=== PATIENT | female | born 1950 | race Caucasian/White ===

== ENCOUNTER 2016-08-16 14:41 | Emergency (ER) | payer OTHER, BC ==
[~2016-08-16] VITALS: Ht 160 cm; Wt 81.8 kg
[2016-08-16 14:53] VITALS: BP 140/72; PULSE 103; RESP 14; TEMP 97.8; O2SAT 99
[2016-08-16] MEDS ORDERED: LISI10TA3 PO (16:00)
[2016-08-16] MEDS ORDERED: OMEP20TA PO (16:00)
[2016-08-16] MEDS ORDERED: LOVA20TA PO (16:00)
[2016-08-16] MEDS ORDERED: VENL75TA PO (16:00)
[2016-08-16] MEDS ORDERED: ROBA500T PO (17:22)
[2016-08-16] MEDS ORDERED: IBUP800T23 PO (17:22)
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
[2016-08-16] MEDS ORDERED: METHOCARBAMOL 500 MG TAB PO ONE (17:30)
[2016-08-16] MEDS ORDERED: IBUPROFEN 800 MG TAB PO ONE (17:30)
== END 2016-08-16 17:37 | disposition home or self-care (01) ==
LOC: NEPB 14:41
DX: S39.012A Strain of muscle, fascia and tendon of lower back, initial encounter (principal); S16.1XXA Strain of muscle, fascia and tendon at neck level, initial encounter; I10 Essential (primary) hypertension; E11.9 Type 2 diabetes mellitus without complications; V43.52XA Car driver injured in collision with other type car in traffic accident, initial encounter; Y99.8 Other external cause status
CPT/HCPCS: 99283